=== PATIENT | female | born 2000 | race Two or more races ===

== ENCOUNTER → 2025-01-25 11:09 | Outpatient (BNVA) | payer OTHER, SELFPAY | PROVIDERS: PCP Family Medicine; Visit Provider Emergency Medicine | DX: S67.195A Crushing injury of left ring finger, initial encounter (principal); W23.1XXA Caught, crushed, jammed, or pinched between stationary objects, initial encounter; Z02.79 Encounter for issue of other medical certificate | CPT/HCPCS: 11740; 73140; 99204 ==

== ENCOUNTER → 2025-01-28 13:13 | Outpatient (BNVA) | payer OTHER, SELFPAY | PROVIDERS: PCP Family Medicine; Visit Provider Emergency Medicine | DX: S67.195A Crushing injury of left ring finger, initial encounter (principal); W23.1XXD Caught, crushed, jammed, or pinched between stationary objects, subsequent encounter; Z02.79 Encounter for issue of other medical certificate | CPT/HCPCS: 99213 ==